=== PATIENT | female | born 2000 | race American Indian/Alaskan Native ===

== ENCOUNTER 2020-04-26 22:16 | Outpatient (CLI) | payer OTHER ==
[2020-04-26 22:46] VITALS: BP 116/79
--- NOTE | 2020-04-27 00:26 | Ultrasound Report ---
US OB limited, US OB BPP wo non-stress INDICATION / CLINICAL INFORMATION: LESIA. COMPARISON: None available. FINDINGS: Single, viable intrauterine in cephalic presentation. heart rate 166. Amniotic fluid volume is normal, with a fluid index of 12 cm. Biophysical profile breathing movements: 2 movements: 2 posture and tone: 2 Amniotic fluid volume: 2 Total biophysical profile score: 8/8 IMPRESSION: 1. Viable intrauterine with normal biophysical profile Signer Name: Roman Jordan MD Signed: 04/27/2020 12:21 AM Workstation Name: [id number]
== END 2020-04-27 00:12 | disposition home or self-care (01) ==
LOC: TRG 22:16 → APU 22:22 → TRG 04-27 00:12
PROVIDERS: ATTEND Obstetrics & Gynecology
DX: O42.913 Preterm premature rupture of membranes, unspecified as to length of time between rupture and onset of labor, third trimester (principal); Z3A.37 37 weeks gestation of pregnancy
CPT/HCPCS: 59025; 76815; 76819

== ENCOUNTER 2020-05-09 22:48 | Observation (INO) | payer OTHER ==
[2020-05-10 01:00] LABS: Bacteria,Urine 4+ /HPF (Negative); Bilirubin,Urine NEG (Negative); Blood,Urine SM (Negative); Color,Urine Yellow (Yellow); Mucus,Urine FEW /HPF
[2020-05-10] MEDS ORDERED: ACETAMINOPHEN 325 MG TAB PO PRN (02:21)
[2020-05-10] MEDS ORDERED: AMPICILLIN/NS 2 GM/100 ML 2 GM/100 ML BAG IV ONE (02:29)
[2020-05-10] MEDS ORDERED: LACTATED RINGERS 1,000 ML IV SCH (03:00)
[2020-05-10 04:17] LABS: Basophils % (Auto) 0.1 % (0.0-1.8); Eosinophils % (Auto) 0.2 % (0.0-4.3); Hemoglobin 7.8 gm/dl (10.1-14.3); Lymphocytes # (Auto) 1.5 K/mm3 (1.2-5.4); Lymphocytes % (Auto) 12.7 % (13.4-35.0); Mean Corpuscular HGB Conc 34 % (30-34); Mean Corpuscular Volume 72 fl (79-97); Monocytes # (Auto) 0.7 K/mm3 (0.0-0.8); Monocytes % (Auto) 5.6 % (0.0-7.3); Platelet Count 222 K/mm3 (140-440); Red Blood Count 3.19 M/mm3 (3.65-5.03); Red Cell Distribution Width 16.7 % (13.2-15.2)
[2020-05-10] MEDS ORDERED: AMPICILLIN/NS 1 GM/50 ML 1 GM/50 ML BAG IV SCH (07:00)
[2020-05-10] MEDS ORDERED: PRENATAL VIT27-FE FUMARATE-FOLIC ACID VIT TAB PO SCH (10:00)
--- NOTE | 2020-05-10 10:39 | Ultrasound Report ---
Limited OB ultrasound INDICATION: well-being FINDINGS: The amniotic fluid index is 8.5 cm which is within the normal range. heart rate is 152 bpm. IMPRESSION: Amniotic fluid index is 8.5 cm which is within the normal range. BIOPHYSICAL PROFILE INDICATION: well-being COMPARISON: None FINDINGS: breathing movement: 2/2 movement: 2/2 posture and tone: 2/2 Qualitative amniotic fluid volume: 2/2 IMPRESSION: Total score for biophysical profile is 8/8 heart rate is 152 bpm Signer Name: Aleksey De La Fuente MD Signed: 05/10/2020 10:34 AM Workstation Name: [id number]
--- NOTE | 2020-05-10 11:59 | Progress Note ---
Assessment and Plan - Patient Problems (1) UTI (urinary tract infection) Current Visit: Yes Status: Acute Qualifiers: Urinary tract infection type: acute cystitis Plan to address problem: May discharge with po Abts (sent to pharmacy) F/U at office for routine scheduled OB visit (2) 39 weeks gestation of Current Visit: Yes Status: Acute Plan to address problem: BPP - 8/8 LESIA - 8.5 Not in labor Subjective - Subjective Date of service: 05/10/20 Principal diagnosis: back pain/ irregular ctxs Patient reports: movement normal, contractions ("here and there"), no new complaints, no loss of fluid, no vaginal bleeding Objective - Vital Signs Vital Signs: Vital Signs - 12hr 05/10/20 05/10/20 05/10/20 03:12 03:13 03:32 Temperature 99.0 F Pulse Rate 62 62 70 Respiratory 18 Rate Blood Pressure 161/85 140/82 Blood Pressure 161/85 [Right] 05/10/20 05/10/20 05/10/20 03:47 04:47 05:02 Temperature Pulse Rate 64 72 71 Respiratory Rate Blood Pressure 153/87 141/77 134/76 Blood Pressure [Right] 05/10/20 05/10/20 05/10/20 05:17 05:32 05:47 Temperature Pulse Rate 68 73 88 Respiratory Rate Blood Pressure 129/73 146/71 122/64 Blood Pressure [Right] 05/10/20 05/10/20 05/10/20 06:03 06:17 06:32 Temperature Pulse Rate 76 74 79 Respiratory Rate Blood Pressure 140/79 141/80 142/77 Blood Pressure [Right] 05/10/20 05/10/20 05/10/20 06:48 07:16 07:53 Temperature 99.7 F H Pulse Rate 85 81 Respiratory Rate Blood Pressure 143/87 141/88 Blood Pressure [Right] - Exam Breasts: deferred Cardiovascular: Regular rate Lungs: Normal air movement Abdomen: Present: other (gravid) Uterus: Present: other (enlarged) FHR: category 1 Uterine Contraction Monitor Mode: External Cervical Dilatation: 1.5 (vertex) Cervical Effacement Percentage: 70 station: -2 Uterine Contraction Frequency (min): 10-12 Uterine Contraction Pattern: Irregular Uterine Tone Measurement Phase: Resting Extremities: normal Deep Tendon Reflex Grade: Normal +2 - Labs Labs: Abnormal Labs 05/10/20 05/10/20 00:15 03:50 WBC 12.1 H RBC 3.19 L Hgb 7.8 L Hct 23.0 L MCV 72 L MCH 24 L RDW 16.7 H Lymph % (Auto) 12.7 L Seg Neutrophils % 81.4 H Seg Neutrophils # 9.8 H Urine WBC (Auto) 19.0 H Laboratory Results - last 24 hr 05/10/20 05/10/20 00:15 03:50 WBC 12.1 H RBC 3.19 L Hgb 7.8 L Hct 23.0 L MCV 72 L MCH 24 L MCHC 34 RDW 16.7 H Plt Count 222 Lymph % (Auto) 12.7 L [place] % (Auto) 5.6 Eos % (Auto) 0.2 Baso % (Auto) 0.1 Lymph # 1.5 [place] # 0.7 Eos # 0.0 Baso # 0.0 Seg Neutrophils % 81.4 H Seg Neutrophils # 9.8 H Urine Color Yellow Urine Turbidity Slightly-cloudy Urine pH 6.0 Ur Specific [place] 1.011 Urine Protein 30 mg/dl Urine Glucose (UA) Neg Urine Ketones Tr Urine Blood Sm Urine Nitrite Neg Urine Bilirubin Neg Urine Urobilinogen 2.0 Ur Leukocyte Esterase Lg Urine WBC (Auto) 19.0 H Urine RBC (Auto) 1.0 U Epithel Cells (Auto) 3.0 Urine Bacteria (Auto) 4+ Urine Mucus Few Urine Yeast (Budding) 1+
[2020-05-10 12:18] VITALS: BP 128/80
[2020-05-10] MEDS ORDERED: NITROFURANTOIN MONOHYD/M-CRYST 100 MG CAP PO SCH (22:00)
== END 2020-05-10 12:30 | disposition home or self-care (01) ==
LOC: TRG 22:48 → APU 22:51 → TRG 05-10 00:16 → LD 05-10 00:16
PROVIDERS: ADMIT Obstetrics & Gynecology; ATTEND Obstetrics & Gynecology
DX: O62.9 Abnormality of forces of labor, unspecified (principal); O23.43 Unspecified infection of urinary tract in pregnancy, third trimester; Z3A.39 39 weeks gestation of pregnancy
CPT/HCPCS: 36415; 76815; 76819; 81001; 85025; 87086; 96365; 96366; G0378; J0290; J7120